=== PATIENT | female | born 1955 | race Caucasian/White ===

== ENCOUNTER 2020-11-28 09:51 | Emergency (ER) | payer MEDICARE, OTHER ==
[2020-11-28] MEDS ORDERED: Lactated Ringers 1,000 ML IV ONE (10:04)
[2020-11-28] MEDS ORDERED: Ondansetron 4 MG/2 ML SDV IVPUSH ONE (10:04)
[2020-11-28 10:05] VITALS: BP 149/76; PULSE 101
[2020-11-28] MEDS ORDERED: Ondansetron 4 MG/2 ML SDV ONE (10:06)
--- NOTE | 2020-11-28 10:29 | EDM.PDOC ---
<Savage Dimas - Last Filed: 11/28/20 10:29> ED HPI GENERAL MEDICAL PROBLEM - General Chief Complaint: Respiratory Problem Stated Complaint: COVID SYMPTOMS Time Seen by Provider: 11/28/20 10:29 - Related Data Allergies Allergy/AdvReac Type Severity Reaction Status Date / Time No Known Allergies Allergy Verified 11/28/20 09:59 Home Meds: Home Meds Acetaminophen/Butalbital/Caff [Fioricet 325-50-40 MG] 1.5 tab PO DAILY PRN 09/14/16 [History] Cholecalciferol (Vitamin D3) [Vitamin D3] 4,000 units PO DAILY 09/14/16 [History] Cholestyramine (With Sugar) [Cholestyramine Powder] 1 dose PO DAILY 09/14/16 [History] Fish Oil/[place]-3 Fatty Acids [Fish Oil 1,000 MG] 2 cap PO DAILY 09/14/16 [History] Glucosamine/Chondroitin/C/Yasir [Glucosamine Chondroitin Caplet] 1 tab PO BID 09/14/16 [History] Multivitamin [Poly-Vitamin] 1 tab PO DAILY 09/14/16 [History] Nebivolol [Bystolic] 1 tab PO DAILY 09/14/16 [History] traMADol HCl [Tramadol HCl] 50 mg PO TID PRN 09/14/16 [History] Acetaminophen/Diphenhydramine [Tylenol Pm Ex-Strength Caplet] 1 tab PO DAILY PRN 09/17/16 [History] buPROPion [Wellbutrin SR] 150 mg PO DAILY 09/18/16 [History] Acetaminophen [Tylenol] 650 mg PO BEDTIME PRN #0 tablet 09/19/16 [Rx] Acetaminophen/oxyCODONE [Percocet 325-5 MG] 1 - 2 tab PO Q4H PRN #60 tablet 09/19/16 [Rx] Bisacodyl [Dulcolax] 5 mg PO DAILY PRN #0 tablet 09/19/16 [Rx] Cyclobenzaprine [Flexeril] 10 mg PO TID PRN #40 tablet 09/19/16 [Rx] Docusate Sodium [Colace] 100 mg PO BID cap 09/19/16 [Rx] Famotidine [Pepcid] 20 mg PO Q12H tablet 09/19/16 [Rx] Magnesium Hydroxide [Milk of Magnesia] 30 ml PO BID PRN #0 cup 09/19/16 [Rx] Patient's Own Medication [Ptom] 0 each PO DAILY@0800 each 09/19/16 [Rx] Patient's Own Medication [Ptom] 0 each PO DAILY@1700 each 09/19/16 [Rx] Patient's Own Medication [Ptom] 0 each PO DAILY@1700 each 09/19/16 [Rx] Rivaroxaban [Xarelto] 10 mg PO DAILY #34 tablet 09/19/16 [Rx] Sennosides [Senna] 8.6 mg PO BID PRN #0 tablet 09/19/16 [Rx] Dicyclomine [Bentyl] 20 mg PO TID PRN #9 tab 11/28/20 [Rx] Ondansetron [Zofran ODT] 4 mg PO Q6H PRN #10 tab.dis 11/28/20 [Rx] Past Medical History HEENT History: Reports: Impaired Vision, Other (See Below) Other HEENT History: TMJ Cardiovascular History: Reports: Hypertension Respiratory History: Reports: None GRILL PREP COOK History: Reports: Endometriosis, Musculoskeletal History: Reports: Other (See Below) Other Musculoskeletal History: low back pain, hip dysplasia Neurological History: Reports: None Psychiatric History: Reports: None Endocrine/Metabolic History: Reports: None Hematologic History: Reports: None Immunologic History: Reports: None Oncologic (Cancer) History: Reports: None Dermatologic History: Reports: None - Past Surgical History Head Surgeries/Procedures: Reports: None GI Surgical History: Reports: Appendectomy, Cholecystectomy, Colonoscopy Female Surgical History: Reports: Section, Other (See Below) Other Female Surgeries/Procedures: laparoscopy for endometriosis x 3 Musculoskeletal Surgical History: Reports: Other (See Below) Other Musculoskeletal Surgeries/Procedures:: surgical intervention with hip dysplasia, bunion correction Social & Family History - Tobacco Use Tobacco Use Status *Q: Never Tobacco User - Recreational Drug Use Recreational Drug Use: No Departure - Departure Disposition: Home, Self-Care 01 Clinical Impression: Gastroenteritis - Discharge Information Prescriptions: Dicyclomine [Bentyl] 20 mg PO TID PRN #9 tab PRN Reason: Abdominal Pain Ondansetron [Zofran ODT] 4 mg PO Q6H PRN #10 tab.dis PRN Reason: Nausea/Vomiting Instructions: Diarrhea, Adult Referrals: Floberg,Malissa M, PERSONALIZED LIVING MANAGER [Primary Care Provider] - Forms: ED Department Discharge Additional Instructions: You were seen in the emergency department today for evaluation with regards to fever, chills, body aches, nausea, and diarrhea. Work-up included blood work, urinalysis, EKG, and chest x-ray. Results your work-up showed that you were dehydrated but were otherwise normal. Your Covid and influenza screens were negative. As we discussed, you are likely suffering from a viral gastroenter itis. A prescription for Zofran for nausea and Bentyl for abdominal cramping has been provided. Use these medications as prescribed. Recommend clear liquid diet for the next 24 to 72 hours and then slowly advance as tolerated. Gatorade and Powerade provide good balance of fluids and electrolytes. Avoid dairy products and fruit juices until symptoms have completely resolved. If you experience any new or worsening symptoms, please not hesitate to return to the emergency department for reevaluation. Sepsis Event Note (ED) - Evaluation Sepsis Screening Result: Possible Sepsis Risk <Isabel Ortega - Last Filed: 11/28/20 12:28> ED HPI GENERAL MEDICAL PROBLEM - General Source of Information: Reports: Patient, RN Notes Reviewed History Limitations: Reports: No Limitations - History of Present Illness INITIAL COMMENTS - FREE TEXT/NARRATIVE: Patient is a 65-year-old female presenting to the emergency department for evaluation with regards to a 2-day history of diarrhea, intermittent abdominal pain, nausea, fever, body aches, and fatigue. Symptoms began on Saturday with just fever, chills, and body aches. Saturday she developed diarrhea and this has been fairly consistent since that time. She feels nauseous but denies any vomiting. Complains of intermittent abdominal pain, particularly in the epigastric region. Denies any dysuria. She does have a dry cough but denies any shortness of breath. Complains of feeling "rundown" today. She has a history of previous appendectomy and cholecystectomy. ED ROS GENERAL - Review of Systems Review Of Systems: See Below Constitutional: Reports: Fever, Chills, Fatigue HEENT: Reports: No Symptoms Respiratory: Reports: Cough. Denies: Shortness of Breath, Wheezing Cardiovascular: Reports: No Symptoms. Denies: Chest Pain, Lightheadedness, Syncope Endocrine: Reports: No Symptoms GI/Abdominal: Reports: Abdominal Pain, Diarrhea, Nausea. Denies: Vomiting : Reports: No Symptoms. Denies: Dysuria Musculoskeletal: Reports: No Symptoms Skin: Reports: No Symptoms Neurological: Reports: No Symptoms Psychiatric: Reports: No Symptoms Hematologic/Lymphatic: Reports: No Symptoms Immunologic: Reports: No Symptoms ED EXAM, GENERAL - Physical Exam Exam: See Below Exam Limited By: No Limitations General Appearance: Alert, WD/WN, No Apparent Distress Respiratory/Chest: No Respiratory Distress, Lungs Clear, Normal Breath Sounds, No Accessory Muscle Use, Chest Non-Tender Cardiovascular: Normal Peripheral Pulses, Regular Rate, Rhythm, No Edema, No Gallop, No JVD, No Murmur, No Rub GI/Abdominal: Normal Bowel Sounds, Soft, No Organomegaly, No Distention, No Abnormal Bruit, No Mass, Tender (Mild generalized abdominal tenderness. Worse in the epigastrium). No: Guarding, Rigid, Rebound Neurological: Alert, Oriented, CN II-XII Intact, Normal Cognition, Normal Gait, Normal Reflexes, No Motor/Sensory Deficits Psychiatric: Normal Affect, Normal Mood Skin Exam: Warm, Dry, Intact, Normal Color, No Rash #1 Interpretation EKG Date: 11/28/20 Time: 10:37 Rhythm: NSR Rate (Beats/Min): 92 [place]: Normal P-Wave: Present QRS: Normal ST-T: Normal QT: Normal EKG Interpretation Comments: Not acute EKG interpreted Dr. Wing MD Course - Vital Signs Last Recorded V/S: Last Vital Signs Temp 98.2 F 11/28/20 10:02 Pulse 101 H 11/28/20 10:02 Resp 16 11/28/20 10:02 BP 149/76 H 11/28/20 10:02 Pulse Ox 97 11/28/20 10:02 - Orders/Labs/Meds Orders: Active Orders 24 hr Category Date Time Status EKG Documentation Completion [RC] ASDIRECTED Care 11/28/20 10:06 Active CULTURE BLOOD [BC] Stat Lab 11/28/20 11:03 Received CULTURE BLOOD [BC] Stat Lab 11/28/20 11:16 Received Blood Culture x2 Reflex Set [OM.PC] Stat Oth 11/28/20 10:38 Ordered EKG 12 Lead [EK] Stat Ther 11/28/20 10:05 Ordered Labs: Laboratory Tests 11/28/20 11/28/20 11/28/20 Range/Units 09:55 10:10 10:10 WBC 5.49 (3.98-10.04) K/mm3 RBC 5.25 H (3.98-5.22) M/mm3 Hgb 16.4 H D (11.2-15.7) gm/dl Hct 47.8 H (34.1-44.9) % MCV 91.0 (79.4-94.8) fl MCH 31.2 (25.6-32.2) pg MCHC 34.3 (32.2-35.5) g/dl RDW Std Deviation 43.2 (36.4-46.3) fL Plt Count 208 (182-369) K/mm3 MPV 11.9 (9.4-12.3) fl Neut % (Auto) 58.9 (34.0-71.1) % Lymph % (Auto) 27.0 (19.3-51.7) % [place] % (Auto) 13.7 H (4.7-12.5) % Eos % (Auto) 0 L (0.7-5.8) Baso % (Auto) 0.2 (0.1-1.2) % Neut # (Auto) 3.24 (1.56-6.13) K/mm3 Lymph # (Auto) 1.48 (1.18-3.74) K/mm3 [place] # (Auto) 0.75 H (0.24-0.36) K/mm3 Eos # (Auto) 0.00 L (0.04-0.36) K/mm3 Baso # (Auto) 0.01 (0.01-0.08) K/mm3 Sodium 138 (136-145) mEq/L Potassium 3.6 (3.5-5.1) mEq/L Chloride 101 (98-107) mEq/L Carbon Dioxide 20 L (21-32) mEq/L Anion Gap 20.6 H (5-15) BUN 22 H (7-18) mg/dL Creatinine 0.9 (0.55-1.02) mg/dL Est Cr Clr Drug Dosing TNP Estimated GFR (MDRD) > 60 (>60) mL/min BUN/Creatinine Ratio 24.4 H (14-18) Glucose 114 (80-115) mg/dL Lactic Acid (0.4-2.0) mmol/L Calcium 9.7 (8.5-10.1) mg/dL Magnesium 2.1 (1.8-2.4) mg/dl Ferritin (8-252) ng/ml Total Bilirubin 0.3 (0.2-1.0) mg/dL AST 35 (15-37) U/L ALT 45 (14-59) U/L Alkaline Phosphatase 92 (46-116) U/L Lactate Dehydrogenase 205 (81-234) U/L Troponin I (0.00-0.056) ng/mL C-Reactive Protein 1.0 (<1.0) mg/dL Total Protein 7.9 (6.4-8.2) g/dl Albumin 3.9 (3.4-5.0) g/dl Globulin 4.0 gm/dL Albumin/Globulin Ratio 1.0 (1-2) Urine Color (Yellow) Urine Appearance (Clear) Urine pH (5.0-8.0) Ur Specific [place] (1.005-1.030) Urine Protein (Negative) Urine Glucose (UA) (Negative) Urine Ketones (Negative) Urine Occult Blood (Negative) Urine Nitrite (Negative) Urine Bilirubin (Negative) Urine Urobilinogen (0.2-1.0) Ur Leukocyte Esterase (Negative) Urine RBC (0-5) /hpf Urine WBC (0-5) /hpf Ur Squamous Epith Cells (0-5) /hpf Urine Bacteria (FEW) /hpf Urine Mucus (FEW) /hpf Influenza Type A RNA Negative (NEGATIVE) Influenza Type B RNA Negative (NEGATIVE) SARS-CoV-2 RNA (STONE) Negative (NEGATIVE) 11/28/20 11/28/20 11/28/20 Range/Units 10:10 10:10 10:10 WBC (3.98-10.04) K/mm3 RBC (3.98-5.22) M/mm3 Hgb (11.2-15.7) gm/dl Hct (34.1-44.9) % MCV (79.4-94.8) fl MCH (25.6-32.2) pg MCHC (32.2-35.5) g/dl RDW Std Deviation (36.4-46.3) fL Plt Count (182-369) K/mm3 MPV (9.4-12.3) fl Neut % (Auto) (34.0-71.1) % Lymph % (Auto) (19.3-51.7) % [place] % (Auto) (4.7-12.5) % Eos % (Auto) (0.7-5.8) Baso % (Auto) (0.1-1.2) % Neut # (Auto) (1.56-6.13) K/mm3 Lymph # (Auto) (1.18-3.74) K/mm3 [place] # (Auto) (0.24-0.36) K/mm3 Eos # (Auto) (0.04-0.36) K/mm3 Baso # (Auto) (0.01-0.08) K/mm3 Sodium (136-145) mEq/L Potassium (3.5-5.1) mEq/L Chloride (98-107) mEq/L Carbon Dioxide (21-32) mEq/L Anion Gap (5-15) BUN (7-18) mg/dL Creatinine (0.55-1.02) mg/dL Est Cr Clr Drug Dosing Estimated GFR (MDRD) (>60) mL/min BUN/Creatinine Ratio (14-18) Glucose (80-115) mg/dL Lactic Acid 1.4 (0.4-2.0) mmol/L Calcium (8.5-10.1) mg/dL Magnesium (1.8-2.4) mg/dl Ferritin 197 (8-252) ng/ml Total Bilirubin (0.2-1.0) mg/dL AST (15-37) U/L ALT (14-59) U/L Alkaline Phosphatase (46-116) U/L Lactate Dehydrogenase (81-234) U/L Troponin I < 0.017 (0.00-0.056) ng/mL C-Reactive Protein (<1.0) mg/dL Total Protein (6.4-8.2) g/dl Albumin (3.4-5.0) g/dl Globulin gm/dL Albumin/Globulin Ratio (1-2) Urine Color (Yellow) Urine Appearance (Clear) Urine pH (5.0-8.0) Ur Specific [place] (1.005-1.030) Urine Protein (Negative) Urine Glucose (UA) (Negative) Urine Ketones (Negative) Urine Occult Blood (Negative) Urine Nitrite (Negative) Urine Bilirubin (Negative) Urine Urobilinogen (0.2-1.0) Ur Leukocyte Esterase (Negative) Urine RBC (0-5) /hpf Urine WBC (0-5) /hpf Ur Squamous Epith Cells (0-5) /hpf Urine Bacteria (FEW) /hpf Urine Mucus (FEW) /hpf Influenza Type A RNA (NEGATIVE) Influenza Type B RNA (NEGATIVE) SARS-CoV-2 RNA (STONE) (NEGATIVE) 11/28/20 Range/Units 12:00 WBC (3.98-10.04) K/mm3 RBC (3.98-5.22) M/mm3 Hgb (11.2-15.7) gm/dl Hct (34.1-44.9) % MCV (79.4-94.8) fl MCH (25.6-32.2) pg MCHC (32.2-35.5) g/dl RDW Std Deviation (36.4-46.3) fL Plt Count (182-369) K/mm3 MPV (9.4-12.3) fl Neut % (Auto) (34.0-71.1) % Lymph % (Auto) (19.3-51.7) % [place] % (Auto) (4.7-12.5) % Eos % (Auto) (0.7-5.8) Baso % (Auto) (0.1-1.2) % Neut # (Auto) (1.56-6.13) K/mm3 Lymph # (Auto) (1.18-3.74) K/mm3 [place] # (Auto) (0.24-0.36) K/mm3 Eos # (Auto) (0.04-0.36) K/mm3 Baso # (Auto) (0.01-0.08) K/mm3 Sodium (136-145) mEq/L Potassium (3.5-5.1) mEq/L Chloride (98-107) mEq/L Carbon Dioxide (21-32) mEq/L Anion Gap (5-15) BUN (7-18) mg/dL Creatinine (0.55-1.02) mg/dL Est Cr Clr Drug Dosing Estimated GFR (MDRD) (>60) mL/min BUN/Creatinine Ratio (14-18) Glucose (80-115) mg/dL Lactic Acid (0.4-2.0) mmol/L Calcium (8.5-10.1) mg/dL Magnesium (1.8-2.4) mg/dl Ferritin (8-252) ng/ml Total Bilirubin (0.2-1.0) mg/dL AST (15-37) U/L ALT (14-59) U/L Alkaline Phosphatase (46-116) U/L Lactate Dehydrogenase (81-234) U/L Troponin I (0.00-0.056) ng/mL C-Reactive Protein (<1.0) mg/dL Total Protein (6.4-8.2) g/dl Albumin (3.4-5.0) g/dl Globulin gm/dL Albumin/Globulin Ratio (1-2) Urine Color Yellow (Yellow) Urine Appearance Clear (Clear) Urine pH 5.5 (5.0-8.0) Ur Specific [place] > or = 1.030 (1.005-1.030) Urine Protein Negative (Negative) Urine Glucose (UA) Negative (Negative) Urine Ketones 3+ H (Negative) Urine Occult Blood 1+ H (Negative) Urine Nitrite Negative (Negative) Urine Bilirubin 2+ H (Negative) Urine Urobilinogen 0.2 (0.2-1.0) Ur Leukocyte Esterase Negative (Negative) Urine RBC 5-10 H (0-5) /hpf Urine WBC 0-5 (0-5) /hpf Ur Squamous Epith Cells 0-5 (0-5) /hpf Urine Bacteria Few (FEW) /hpf Urine Mucus Few (FEW) /hpf Influenza Type A RNA (NEGATIVE) Influenza Type B RNA (NEGATIVE) SARS-CoV-2 RNA (STONE) (NEGATIVE) Meds: Medications Discontinued Medications Generic Name Dose Route Start Last Admin Trade Name Freq PRN Reason Stop Dose Admin Lactated Ringer's 1,000 mls @ 999 mls/hr 11/28/20 10:04 11/28/20 10:11 Ringers, Lactated IV 11/28/20 11:04 999 mls/hr .BOLUS ONE Administration Sodium Chloride 1,000 mls @ 999 mls/hr 11/28/20 11:21 11/28/20 11:30 Normal Saline IV 11/28/20 12:21 999 mls/hr NOW STA Administration Ondansetron HCl 4 mg 11/28/20 10:04 11/28/20 10:11 Ondansetron 4 Mg/2 Ml Sdv IVPUSH 11/28/20 10:05 4 mg ONETIME ONE Administration Ondansetron HCl Confirm 11/28/20 10:06 11/28/20 10:11 Ondansetron 4 Mg/2 Ml Sdv Administered 11/28/20 10:07 Not Given Dose 4 mg .ROUTE .STK-MED ONE - Re-Assessments/Exams Free Text/Narrative Re-Assessment/Exam: Patient is a 65-year-old female presenting to the emergency department for evaluation with regards to fever, chills, nausea, diarrhea, abdominal cramping, generalized body aches. Orders had been previously entered by Dr. Dimas, however he had not had a chance to see the patient yet. I have taken over her care. On exam, she does have some generalized abdominal tenderness, worse in the epigastrium. She has a history of previous appendectomy and cholecystectomy. She did receive a 1 L bolus of LR as well as Zofran IV which she states did help with her nausea. In addition to the test already ordered, I did add a urinalysis. 11/28/20 1130 Hematology was significant for hemoglobin elevated at 16.4, CO2 low at 20, anion gap elevated at 20.6, BUN 22. Was otherwise unremarkable. These results indicate that the patient is dehydrated. I have ordered a second liter of IV fluids of NS bolus. Patient has not produced a urine thus far. 11/28/20 12:25 Urinalysis is significant for 3+ ketones, 1+ occult blood, 2+ bilirubin, and 5- 10 RBCs. Nitrite and leukocyte esterase are negative. Covid and influenza screen are also negative. Patient is feeling much better after the 2 L of IV fluids. Discussed that she is likely suffering from a viral gastroenteritis. I will discharge her home with a prescription for Zofran for nausea and Bentyl as needed for abdominal cramping. Recommend increased fluid intake. Discussed return precautions. Discharge instructions as documented. Departure - Departure Time of Disposition: 12:25 Condition: Good - Discharge Information *PRESCRIPTION DRUG MONITORING PROGRAM REVIEWED*: No *COPY OF PRESCRIPTION DRUG MONITORING REPORT IN PATIENT NHI: No Sepsis Event Note (ED) - Focused Exam Vital Signs: Vital Signs Temp Pulse Resp BP Pulse Ox 11/28/20 10:02 98.2 F 101 H 16 149/76 H 97
--- NOTE | 2020-11-28 10:48 | CR ---
Chest: Portable view of the chest was obtained. Comparison: Prior chest x-ray of 08/28/16. Heart size and mediastinum are normal. Previous cervical spine surgery is noted. Lungs are clear with no acute parenchymal change. Impression: 1. Nothing acute is seen on portable chest x-ray. 2. No change from previous study is seen. Diagnostic code #1
[2020-11-28 10:50] LABS: CORONAVIRUS COVID-19 NAA NEGATIVE (NEGATIVE)
[2020-11-28] MEDS ORDERED: Sodium Chloride 0.9% 1,000 ML IV STA (11:21)
== END 2020-11-28 12:45 | disposition home or self-care (01) ==
LOC: JD.ED 09:51
DX: K52.9 Noninfective gastroenteritis and colitis, unspecified (principal); I10 Essential (primary) hypertension; Z20.822 Contact with and (suspected) exposure to COVID-19; Z79.899 Other long term (current) drug therapy
CPT/HCPCS: 0240U; 36415; 71045; 80053; 81001; 82728; 83605; 83615; 83735; 84484; 85025; 86140; 87040; 93005; 96374; 99284; J2405; J7030; J7120; 93010

== ENCOUNTER 2022-10-05 10:08 | Emergency (ER) | payer MEDICARE, OTHER ==
[2022-10-05 10:17] VITALS: BP 132/62; PULSE 82
[2022-10-05] MEDS ORDERED: Ondansetron 4 MG/2 ML SDV IVPUSH ONE (10:30)
[2022-10-05] MEDS ORDERED: Sodium Chloride 0.9% 10 ML Syringe FLUSH PRN (10:30)
[2022-10-05] MEDS ORDERED: Sodium Chloride 0.9% 1,000 ML IV STA (10:30)
[2022-10-05] MEDS ORDERED: Lactated Ringers 1,000 ML IV ONE (12:45)
[2022-10-05] MEDS ORDERED: Metoclopramide 10 MG/2 ML SDV IVPUSH ONE (12:45)
== END 2022-10-05 14:29 | disposition home or self-care (01) ==
LOC: JD.ED 10:08
DX: A08.4 Viral intestinal infection, unspecified (principal); I10 Essential (primary) hypertension; Z79.899 Other long term (current) drug therapy; Z79.01 Long term (current) use of anticoagulants
CPT/HCPCS: 36415; 80053; 83690; 85025; 96361; 96374; 96375; 99284; J2405; J2765; J3490; J7030; J7120

== ENCOUNTER 2024-07-06 08:43 | Day surgery (SDC) | payer MEDICARE, OTHER ==
[~2024-07-06 08:43] MED LIST: Sodium Chloride 0.9% 10 ML Syringe FLUSH PRN; Sodium Chloride 0.9% 10 ML Syringe FLUSH SCH; ceFAZolin 2 GM Vial ONE
[2024-07-06] MEDS ORDERED: Lactated Ringers 1,000 ML ONE (08:45)
[2024-07-06] MEDS ORDERED: Propofol 200 MG/20 ML SDV ONE (08:46)
[2024-07-06] MEDS ORDERED: Midazolam 1 MG/ML 2 ML SDV ONE (08:46)
[2024-07-06] MEDS: Lactated Ringers 1,000 ML IV SCH (09:00)
[2024-07-06] MEDS: Pregabalin 25 MG Cap PO SCH (09:20)
[2024-07-06] MEDS: oxyCODONE ER 10 MG TAB.ER PO SCH (09:20)
[2024-07-06] MEDS: Acetaminophen 325 MG Tab PO SCH (09:20)
[2024-07-06] MEDS ORDERED: Triamcinolone Acetonide 40 MG/ML 1 ML SDV ONE (09:30)
[2024-07-06] MEDS ORDERED: Ondansetron 4 MG/2 ML SDV ONE (10:25)
[2024-07-06] MEDS ORDERED: Dexamethasone 4 MG/ML 5 ML MDV ONE (10:25)
[2024-07-06] MEDS ORDERED: Phenylephrine 1% 10 MG/ML SDV ONE (10:27)
[2024-07-06] MEDS ORDERED: Ropivacaine 0.5% 5 MG/ML 30 ML SDV ONE (10:51)
[2024-07-06] MEDS ORDERED: dexmedeTOMIDine HCl 200 MCG/2 ML SDV ONE (10:51)
[2024-07-06] MEDS: Morphine 8 MG, EPINEPHrine 0.3 MG, Cefuroxime 750 MG, Ketorolac 30 MG, Sodium Chloride ... PRN (11:18)
[2024-07-06] MEDS ORDERED: Ondansetron 4 MG/2 ML SDV IVPUSH PRN (11:22)
[2024-07-06] MEDS ORDERED: HYDROmorphone 0.5 MG/0.5 ML Syringe IVPUSH PRN (11:22)
[2024-07-06] MEDS ORDERED: fentaNYL 100 MCG/2 ML SDV IVPUSH PRN (11:22)
[2024-07-06] MEDS: VANCOmycin 1 GM SDV ONE (11:24)
[2024-07-06] MEDS: Tranexamic Acid 1,000 MG/10 ML Vial ONE (11:24)
[2024-07-06] MEDS: Ketorolac 30 MG/ML SDV ONE (11:40)
[2024-07-06] MEDS: Bupivacaine 0.25% 10 ML SDV ONE (11:40)
[2024-07-06] MEDS: oxyCODONE 5 MG Tab PO PRN (13:35)
[2024-07-06 14:54] VITALS: BP 110/82; PULSE 83
== END 2024-07-06 15:20 | disposition home or self-care (01) ==
LOC: JD.SDS 08:43
PROVIDERS: ATTEND Orthopaedic Surgery
DX: M17.0 Bilateral primary osteoarthritis of knee (principal); I10 Essential (primary) hypertension; E78.00 Pure hypercholesterolemia, unspecified; Z79.899 Other long term (current) drug therapy; Z68.33 Body mass index [BMI] 33.0-33.9, adult; Z86.16 Personal history of COVID-19
CPT/HCPCS: 0055T; 20610; 27447; 64447; 73560; 97110; 97116; 97161; A9270; C1713; C1776; J0171; J0665; J0690; J0697; J1100; J1885; J2250; J2272; J2371; J2405; J2704; J2795; J3301; J7120; J3490

== ENCOUNTER 2025-06-10 08:24 | Day surgery (SDC) | payer MEDICARE, OTHER ==
[~2025-06-10 08:24] MED LIST changes: -ceFAZolin 2 GM Vial ONE
[2025-06-10] MEDS: Lactated Ringers 1,000 ML IV SCH (09:15)
[2025-06-10] MEDS ORDERED: Propofol 200 MG/20 ML SDV ONE ×2 (09:39→10:08)
[2025-06-10] MEDS ORDERED: Ondansetron 4 MG/2 ML SDV ONE (09:54)
[2025-06-10 12:06] VITALS: BP 120/68; PULSE 72
== END 2025-06-10 11:30 | disposition home or self-care (01) ==
LOC: JD.SDS 08:24
PROVIDERS: ATTEND Surgery
DX: Z12.11 Encounter for screening for malignant neoplasm of colon (principal); D12.3 Benign neoplasm of transverse colon; D12.5 Benign neoplasm of sigmoid colon; R19.5 Other fecal abnormalities; I10 Essential (primary) hypertension; E78.00 Pure hypercholesterolemia, unspecified; Z86.16 Personal history of COVID-19; Z79.82 Long term (current) use of aspirin; Z79.899 Other long term (current) drug therapy
CPT/HCPCS: 45384; J2405; J2704; J7120; 00811